=== PATIENT | male | born 2000 | race African-American/Black ===

== ENCOUNTER 2023-10-10 04:38 | Emergency (ER) | payer OTHER ==
[~2023-10-10] VITALS: Ht 190.5 cm; Wt 73.0 kg
[2023-10-10 04:43] VITALS: O2SAT 99
[2023-10-10] MEDS ORDERED: IBUP-2029 MT (07:57)
[2023-10-10] MEDS: KETOROLAC 30MG/ML VIAL IM ONE (08:07)
[2023-10-10 08:15] VITALS: BP 117/51; PULSE 56; RESP 16; TEMP 97.8
== END 2023-10-10 08:15 | disposition home or self-care (01) ==
LOC: ER 05:13
DX: K08.89 Other specified disorders of teeth and supporting structures (principal)
CPT/HCPCS: 99283; 96372; J1885

== ENCOUNTER 2023-11-15 20:18 | Emergency (ER) | payer OTHER ==
[~2023-11-15] VITALS: Ht 190.5 cm; Wt 75.0 kg
[~2023-11-15 20:18] MED LIST: IBUP-2029 MT
[2023-11-15 20:22] VITALS: O2SAT 100
[2023-11-15 20:34] VITALS: BP 120/73; PULSE 60; RESP 16; TEMP 98.8; O2SAT 100
[2023-11-15] MEDS ORDERED: MORPHINE SULFATE 4 MG/ML INJ (FOR IV/IM USE) IM ONE (21:45)
[2023-11-15] MEDS ORDERED: KETOROLAC 15MG/ML VIAL IM ONE (22:00)
[2023-11-15] MEDS ORDERED: NAPR-681 MT (22:56)
== END 2023-11-16 00:35 | disposition home or self-care (01) ==
LOC: ER 20:18
DX: K02.9 Dental caries, unspecified (principal)
CPT/HCPCS: 99282; J1885